=== PATIENT | female | born 1985 | race Hispanic/Latino ===

== ENCOUNTER 2017-04-25 13:55 | Outpatient (CLI) | payer BC, OTHER ==
--- NOTE | 2017-04-25 15:10 | ULT ---
OBSTETRICAL ULTRASOUND: DATE: 04/25/17. COMPARISON: None. HISTORY: A 31-year-old female undergoing assessment of size and dates. TECHNIQUE: Multiplanar, nash scale, sonographic imaging of the gravid uterus obtained. FINDINGS: Cervical length is 4.4 cm, within normal limits. There is a single intrauterine gestation demonstrat ing a breech presentation. heart rate is 149 b.p.m. Region of the diaphragm appears within normal limits. The spine, 4-chamber heart view, stomach, kidneys, urinary bladder, umbilical cord insertion ap pear within normal limits. A 3-vessel cord is noted. Intracranial contents, nose/lips, and fa ce appear grossly unremarkable. The placenta is located anteriorly, demonstrating no evidence for previa or abruption. Amniotic fluid index is 13.2 cm. Biometry: BPD 5.0 cm, 22 weeks 1 day HC 18.7 cm, 21 weeks 0 days AC 16.6 cm, 21 weeks 5 days FL 3.5 cm, 21 weeks 0 days. Average based on ultrasound is 21 weeks 1 day with an estimated date of delivery on 09/04/17. Estimated weight is 414 gm +/- 61 gm. IMPRESSION: Single viable intrauterine gestation demonstrating no sonographic abnormality. POS: [facility]
== END 2017-04-25 13:56 | disposition home or self-care (01) ==
LOC: ULT 13:55
PROVIDERS: ATTEND Family Medicine
DX: Z34.92 Encounter for supervision of normal pregnancy, unspecified, second trimester (principal); Z3A.21 21 weeks gestation of pregnancy
CPT/HCPCS: 76805

== ENCOUNTER 2017-08-29 12:09 | Inpatient (IN) | payer BC ==
[~2017-08-29 12:09] MED LIST: Bupivacaine/Epinephrine 0.25% 30 ML VIAL ONE
[2017-08-29 12:59] VITALS: BMI 33.8
[2017-08-29 13:09] LABS: Amnisure Test RUPTURE DETECTED (No Rupture)
[2017-08-29 13:10] LABS: Amnisure Internal Control QC ACCEPTABLE (ACCEPTABLE)
[2017-08-29] MEDS ORDERED: Lidocaine 1% (PF) 30 ML VIAL SC PRN (13:26)
[2017-08-29] MEDS ORDERED: Ondansetron HCl/PF 4 MG/2 ML Vial IVP PRN ×2 (13:26→19:46)
[2017-08-29] MEDS ORDERED: HYDROcodone/Acetaminophen 5/325 mg Tablet PO PRN ×2 (13:26)
[2017-08-29] MEDS ORDERED: Lactated Ringer's 1,000 ML IV SCH (13:30)
[2017-08-29] MEDS ORDERED: NS w/ Oxytocin 10 units 500 ML IV SCH (13:30)
[2017-08-29] MEDS: Lactated Ringer's 1,000 ML IV SCH ×3 (13:50→20:22)
[2017-08-29 14:16] LABS: Hemoglobin 12.9 g/dL (12.0-16.0); Mean Corpuscular HGB CONC 35.6 g/dL (32.0-36.0); Mean Corpuscular Hemoglobin 30.2 pg (27.0-31.0); Mean Corpuscular Volume 84.8 fl (81.0-99.0); Mean Platelet Volume 10.7 fL (7.4-10.4); Platelet Count 140 thou/uL (130-400); RBC Distribution Width 12.1 % (11.5-14.5); Red Blood Cell (RBC) Count 4.26 mill/uL (4.20-5.40); White Blood Cell (WBC) Count 7.7 thou/uL (4.8-10.8)
[2017-08-29 14:49] LABS: Syphilis Antibody Nonreactive (Nonreactive); Syphilis Antibody Index 0.04 S/CO (<1.00 Non-Reactive)
[2017-08-29 16:24] LABS: HBSAg Index 0.15 S/CO (0-0.99); Hep B Surf Ag NonReactive S/CO (NonReactive)
[2017-08-29] MEDS ORDERED: LR 500 ML/Oxytocin 10 units 500 ML IV SCH (18:00)
[2017-08-29] MEDS ORDERED: Bupivacaine 0.5% 20 ML, fentaNYL Citrate/PF 400 MCG in Sodium Chloride 0.9% 72 ML EPIDURAL SCH (19:15)
[2017-08-29] MEDS ORDERED: DISCONTINUE ALL PREVIOUS NARCOTICS FS SCH (19:15)
[2017-08-29] MEDS ORDERED: Eucerin (Mineral Oil/Petrolatum,White) 30 gm Jar TOP PRN (19:46)
[2017-08-29] MEDS ORDERED: Acetaminophen 325 MG TAB PO PRN (19:46)
[2017-08-29] MEDS ORDERED: Naloxone HCl 0.4 mg/ml Vial IVP PRN ×2 (19:46)
[2017-08-29] MEDS ORDERED: diphenhydrAMINE 50 MG/ML VIAL IVP PRN (19:46)
[2017-08-29] MEDS ORDERED: ePHEDrine/0.9% NaCl/PF SYRINGE 50 mg/10 ml SLOW IVP PRN (19:46)
[2017-08-29] MEDS ORDERED: Promethazine HCl 25 MG/ML VIAL IM PRN (19:46)
[2017-08-29] MEDS ORDERED: Lactated Ringer's 500 ML IV PRN (19:46)
[2017-08-29] MEDS ORDERED: Communication Order-Pharmacy FS SCH (20:00)
[2017-08-29] MEDS ORDERED: Fentanyl 4mcg/Marcaine 0.1% Cassette 100 ML EPIDURAL SCH (20:00)
[2017-08-30] MEDS: NS / Oxytocin 40 units/1000ml 1,000 ML IV PRN ×2 (01:30→02:40)
[2017-08-30] MEDS ORDERED: HYDROcodone/Acetaminophen 5/325 mg Tablet PO PRN (08:10)
[2017-08-30] MEDS ORDERED: Bisacodyl 10 MG SUPP PR PRN (08:10)
[2017-08-30] MEDS ORDERED: Benzocaine/Menthol 20-0.5% 60 ML CAN TOP PRN (08:10)
[2017-08-30] MEDS ORDERED: Lanolin Ointment 7 GM TUBE TOP PRN (08:10)
[2017-08-30] MEDS ORDERED: Acetaminophen/Codeine 30-300mg Tablet PO PRN (08:10)
[2017-08-30] MEDS ORDERED: Ondansetron HCl/PF 4 MG/2 ML Vial IVP PRN (08:10)
[2017-08-30] MEDS ORDERED: NS / Oxytocin 40 units/1000ml 1,000 ML IV SCH (08:10)
[2017-08-30] MEDS ORDERED: traMADol HCl 50 MG TAB PO PRN (08:10)
[2017-08-30] MEDS ORDERED: Milk Of Magnesia 30 ML UDCUP PO PRN (08:10)
[2017-08-30] MEDS ORDERED: diphenhydrAMINE 25 MG CAP PO PRN (08:10)
[2017-08-30] MEDS: Docusate Calcium (SURFAK) 240 MG CAP PO SCH ×2 (09:13→21:46)
[2017-08-30] MEDS: Prenatal Vitamin 1 TAB PO SCH (09:13)
[2017-08-30] MEDS: Ibuprofen 800 MG TAB PO SCH ×2 (14:04→21:46)
[2017-08-30] MEDS: Ferrous Sulfate 325 MG TAB PO SCH (18:02)
[2017-08-31] MEDS: Ibuprofen 800 MG TAB PO SCH ×2 (06:08→14:08)
--- NOTE | 2017-08-31 08:56 | PDOC.PP ---
Post Progress Note Post Day #: 1 Subjective: No complaints, doing well, well, lochia normal PO intake tolerated: yes Flatus: yes Ambulation: yes Vital Signs (12 hours) Temp Pulse Resp BP 08/31/17 00:10 98.3 F 66 18 103/61 Weight Weight 162 lb - Physical Examination General: NAD Cardiovascular: no m/r/g, RRR Respiratory: clear to auscultation bilaterally, non-labored breathing Abdominal: + bowel sounds, lochia, no distention, appropriately TTP Psychiatric: A&Ox3, normal affect Result Diagrams: 08/29/17 13:50 Additional Labs: Post Labs Blood Type O POSITIVE 08/29/17 13:50 Hep Bs Antigen NonReactive S/CO (NonReactive) 08/29/17 13:50 (1) Vaginal delivery Code(s): O80 - ENCOUNTER FOR FULL-TERM UNCOMPLICATED DELIVERY Status: Acute - Assessment/Plan PPD #1 Routine care D/C this PM if OK with carina F/u in 6 weeks
[2017-08-31 09:10] VITALS: BP 99/51; TEMP 98.2
[2017-08-31] MEDS: Ferrous Sulfate 325 MG TAB PO SCH (09:37)
[2017-08-31] MEDS: Docusate Calcium (SURFAK) 240 MG CAP PO SCH (09:37)
[2017-08-31] MEDS: Prenatal Vitamin 1 TAB PO SCH (09:37)
== END 2017-08-31 15:20 | disposition home or self-care (01) | DRG 775 ==
LOC: L&D/OP 12:09 → L&D 13:27 → 3SW 08-30 08:06
PROVIDERS: ADMIT Family Medicine; ATTEND Family Medicine
PROC: 10E0XZZ Delivery of Products of Conception, External Approach (ICD-10-PCS; principal; 2017-08-30)
DX: O80 Encounter for full-term uncomplicated delivery (principal); Z3A.39 39 weeks gestation of pregnancy; Z37.0 Single live birth
CPT/HCPCS: 51702; 84112; 85027; 86780; 86850; 86900; 86901; 87340; 99285; J2001; J3010; J3490; J7050